=== PATIENT | male | born 2005 | race Caucasian/White ===

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

== ENCOUNTER 2023-10-20 23:18 | Emergency (ER) | payer OTHER, SELFPAY ==
--- NOTE | ~2023-10-20 | XR_ITS ---
EXAMINATION: XR shoulder LT min 2V INDICATION: Post reduction TECHNIQUE: Three views of the left 10/20/2023 shoulder are submitted. COMPARISON: None FINDINGS: There has been interval reduction of the previously described shoulder dislocation. There i s indentation of the superolateral humeral head. Glenohumeral and acromioclavicular joint spaces are normal. Soft tissues are unremarkable. IMPRESSION: 1. Reduced glenohumeral dislocation. 2. Probable Hill-Sachs deformity of the humeral head. Reviewed, dictated and finalized at location A.
--- NOTE | ~2023-10-20 | XR_ITS ---
EXAM: XR shoulder LT min 2V DATE: 10/20/2023 23:50 HISTORY: fall, deformity . COMPARISON: 12/05/2022. FINDINGS: Normal mineralization. Anterior dislocation of the humeral head. Small linear osseous frag ments at the inferior margin of the glenoid are suspected in one view. Notch-like defect in the poste rolateral aspect of the humeral head. No lytic or blastic lesion. No erosion or periosteal change. So ft tissues within normal limits. IMPRESSION: Anterior left shoulder dislocation. Hill-Sachs deformity. Possible osseous Bankart lesion . Reviewed, dictated and finalized at location K. IMPRESSION: Anterior left shoulder dislocation. Hill-Sachs deformity. Possible osseous Bankart lesion.
[2023-10-20 23:22] VITALS: BP 142/70; PULSE 97; RESP 20; TEMP 37.2; O2SAT 100
[2023-10-21] VITALS (9 sets, daily range): BP systolic 108–141; BP diastolic 51–96; PULSE 70–100; RESP 12–24; TEMP 36.6–36.8; O2SAT 97–100
--- NOTE | 2023-10-21 00:32 | ED.GENADULT ---
HPI - General Adult General Chief complaint: Extremity Injury, Upper Stated complaint: shoulder dislacation Time Seen by Provider: 10/21/23 00:28 Related Data Allergies Allergy/AdvReac Type Severity Reaction Status Date / Time No Known Allergies Allergy Verified 10/21/23 01:29 [facility] Past Medical History Medical History (Updated 10/22/23 @ 00:01 by Heaven Franco) ADD (attention deficit disorder) Asthma Febrile seizures GERD (gastroesophageal reflux disease) Kyphosis Pneumonia Surgical History Surgical History (Updated 06/19/19 @ 15:25 by Juan Messina) H/O adenoidectomy Hx of myringotomy Hx of tonsillectomy Social History Social History Gender identity (if verbalized by the patient): Male Course Vital Signs Vital signs: Vital Signs Temperature 98.9 F 10/20/23 23:22 Pulse Rate 97 10/20/23 23:22 Respiratory Rate 20 10/20/23 23:22 Blood Pressure 142/70 H 10/20/23 23:22 Pulse Oximetry 100 10/20/23 23:22 Oxygen Delivery Room Air 10/20/23 23:22 Temperature 98.3 F 10/21/23 03:29 Pulse Rate 100 10/21/23 03:29 Respiratory Rate 16 10/21/23 03:29 Blood Pressure 136/88 10/21/23 03:29 Pulse Oximetry 99 10/21/23 03:29 Oxygen Delivery Room Air 10/21/23 03:29 Procedures Orthopedic Joint Reduction Left Shoulder: Orthopedic Joint Reduction Date: 10/21/23 Orthopedic Joint Reduction Time: 01:30 Time Out Performed: Yes Side: left Joint Reduction Location: shoulder Analgesia: procedural sedation Pre-Procedure Neuro Vascular Exam: normal Shoulder Technique Used (if applicable): external rotation Technique used: other Post-reduction neuro exam: intact Post-reduction vascular: intact Post Reduction X-Ray Obtained: Yes Post Reduction X-Ray Results: reduced Splint Applied: Yes Patient Tolerated Procedure: well Medical Decision Making MDM Narrative Medical decision making narrative: The patient was evaluated by myself in the emergency department. History is obtained from patient who is an independent historian and physical exam was performed. External medical records were reviewed at this time. IV was established and pertinent tests were ordered. Patient was administered 4 mg of IV Zofran for nausea and 4 mg of IV morphine for pain. Imaging studies obtained included a left shoulder x-ray which was independently interpreted by me revealing an anterior shoulder dislocation with Hill-Sachs deformity and Bankart lesion, which is pending final radiology interpretation. Differential diagnosis considerations include anterior versus posterior shoulder dislocation versus fractures. Sedation Procedure Note fot Anterior shoulder dislocation Indication: Anterior left shoulder dislocation ASA class: 1 Mallampati Score: 2 Medication/Dose: Propofol 200 mg Sedation time: 10 min Level of sedation: Mild to moderate Estimated Blood Loss: None Specimen Removed: None Risks and benefits of the procedure were discussed with patient and an informed written consent was obtained and placed in the chart.? Patient has had no prior reaction to anesthesia. ?Patient's airway was assessed prior to sedation. A timeout was called.? Patient was maintained on continuous cardiopulmonary monitoring with supplemental oxygen and continuous end-tidal capnography.? Respiratory therapist at bedside.? Patient received an induction dose of 100 milligrams of Propofol achieving an appropriate level of sedation to perform anterior shoulder reduction by me.? Patient was observed with subsequent serial examination until patient returned to baseline neurological status.? Patient remained hemodynamically stable with normal oxygenation, and normal vital signs, and spontaneous ventilation throughout the entire procedure sedation process.? Patient tolerated the procedure well with no complications or interventions. Patient
[2023-10-21] MEDS: ONDANSETRON INJ 4 MG/2 ML VIAL IV PUSH (00:46)
[2023-10-21] MEDS: MORPHINE SULFATE (*CRX) 4 MG/ML INJ IV PUSH (00:46)
--- NOTE | 2023-10-21 02:32 | PC.NURSE ---
0205 1 L bolus of NS initiated at this time via IV per Dr. Burgess verbal order. 0207 80 mg of propofol administered via IV push by Dr. Burgess. 0211 60 mg of propofol administered via IV push by Dr. Burgess. 0213 60 mg of propofol administered via IV push by Dr. Burgess. Pt received a total of 200 mg of propofol. All vitals stable. Care ongoing.
[2023-10-21] MEDS: MORPHINE SULFATE (*CRX) 2 MG/ML INJ IV PUSH (03:28)
== END 2023-10-21 03:39 | disposition home or self-care (01) ==
PROVIDERS: Emergency Provider Emergency Medicine
DX: S43.015A Anterior dislocation of left humerus, initial encounter (principal); J45.909 Unspecified asthma, uncomplicated; Z87.01 Personal history of pneumonia (recurrent); W19.XXXA Unspecified fall, initial encounter
CPT/HCPCS: 23650; 73030; 96374; 96375; 99285; A4565; J2270; J2405; J7030